=== PATIENT | male | born 1935 | race Caucasian/White ===

== ENCOUNTER 2019-03-23 23:30 | Emergency (ER) | payer SELFPAY ==
[~2019-03-23] VITALS: Ht 157.5 cm; Wt 70.9 kg
[2019-03-23 23:31] VITALS: Ht 157.5 cm; Wt 70.9 kg
[2019-03-24] MEDS ORDERED: NIFE30TA23 PO (03:14)
[2019-03-24 03:25] VITALS: BP 146/64; PULSE 78; RESP 18
--- NOTE | 2019-03-24 03:29 | ERD ---
ER Documentation Chief Complaint Chief Complaint HBP SBP IN 200s @HOME; HX OF HTN AND STROKE; NO CP, NO ALOC HPI 83-year-old male presenting with headache. He did not take his blood pressure medications today. He was noted to have high blood pressure at home so he was brought in for evaluation by his daughter. Apparently his blood pressure at home was systolic of over 230. He did take Cardene prior to arrival. He does have a history of hypertension and stroke. He denies any new onset focal weakness or numbness. No new vision disturbance. No nausea, vomiting. ROS All systems reviewed and are negative except as per history of present illness. Medications Home Meds Active Scripts Nifedipine* (Nifedipine ER*) 30 Mg Tablet.sa, 30 MG PO DAILY, #30 TAB.SA Prov:ELISEO WHITEHEAD MD 03/24/19 Allergies Allergies: Coded Allergies: No Known Allergy (Unverified , 03/24/19) PMhx/Soc Medical and Surgical Hx: pt denies Surgical Hx History of Surgery: No Anesthesia Reaction: No Hx Neurological Disorder: Yes (CVA) Hx Respiratory Disorders: No Hx Cardiac Disorders: Yes (HTN) Hx Psychiatric Problems: No Hx Miscellaneous Medical Probl: Yes (, Glaucoma, arthritis) Hx Alcohol Use: No Hx Substance Use: No Hx Tobacco Use: No Smoking Status: Never smoker FmHx Family History: No diabetes Physical Exam Vitals Vital Signs Date Temp Pulse Resp B/P (MAP) Pulse Ox O2 O2 Flow FiO2 Time Delivery Rate 03/23/19 97.4 78 18 215/86 98 23:31 (129) Physical Exam Const: No acute distress Head: Atraumatic Eyes: Normal Conjunctiva. Right corneal opacification, chronic. Left pupil midsize, reactive to light. EOMI ENT: Normal External Ears, Nose and Mouth. Neck: Full range of motion. No meningismus. Resp: Clear to auscultation bilaterally Cardio: Regular rate and rhythm, no murmurs Abd: Soft, non tender, non distended. Normal bowel sounds Skin: No petechiae or rashes Back: No midline or flank tenderness Ext: No cyanosis, or edema Neur: Awake and alert, oriented x3, cranial nerves intact, strength and sensations intact in left upper and left lower extremities. 3 out of 5 strength in the right upper and right lower extremity secondary to old stroke. Psych: Normal Mood and Affect Result Diagram: 03/24/19 0114 03/24/19 0114 Results 24 hrs Laboratory Tests Test 03/24/19 01:14 White Blood Count 12.1 10^3/ul Red Blood Count 4.00 10^6/ul Hemoglobin 11.8 g/dl Hematocrit 36.2 % Mean Corpuscular Volume 90.5 fl Mean Corpuscular Hemoglobin 29.5 pg Mean Corpuscular Hemoglobin Concent 32.6 g/dl Red Cell Distribution Width 14.1 % Platelet Count 354 10^3/UL Mean Platelet Volume 10.6 fl Immature Granulocytes % 0.600 % Neutrophils % 65.7 % Lymphocytes % 22.6 % Monocytes % 9.2 % Eosinophils % 1.4 % Basophils % 0.5 % Nucleated Red Blood Cells % 0.0 /100WBC Immature Granulocytes # 0.070 10^3/ul Neutrophils # 8.0 10^3/ul Lymphocytes # 2.7 10^3/ul Monocytes # 1.1 10^3/ul Eosinophils # 0.2 10^3/ul Basophils # 0.1 10^3/ul Nucleated Red Blood Cells # 0.0 10^3/ul Sodium Level 133 mmol/L Potassium Level 3.5 mmol/L Chloride Level 99 mmol/L Carbon Dioxide Level 24 mmol/L Anion Gap 10 Blood Urea Nitrogen 24 mg/dl Creatinine 0.62 mg/dl Est Glomerular Filtrat Rate mL/min mL/min Glucose Level 108 mg/dl Calcium Level 8.7 mg/dl Procedures/MDM EMERGENT LABS AND DIAGNOSTIC STUDIES: Lab Results above were reviewed and interpreted by me. CBC: Mild leukocytosis, unclear etiology. Mild anemia. BMP: Mild elevation in BUN, likely secondary to dehydration. No evidence of clinically significant electrolyte abnormality, acidosis, hypoglycemia or hyperglycemia Radiology Results as interpreted by Radiology below were reviewed by Nikhil Whitehead MD: CT head shows no acute abnormalities Initial Nursing notes reviewed. Previous Medical Records requested via the Electronic Health Record. EMERGENCY DEPARTMENT COURSE / MEDICAL DECISION MAKING: Patient is presenting with uncontrolled hypertension. He did take nifedipine prior to arrival with improvement of his blood pressure. I do not feel he needs treatment here. He has no new focal deficits but given his severe hypertension at home with a systolic blood pressure over 230, I did a CT of his head to rule out intracranial hemorrhage. CT head was negative for acute stroke or intracra nial hemorrhage. Labs did not show any significant abnormalities. Patient's blood pressure was elevated (>120/80) but appears stable without evidence of hypertensive emergency or urgency. The patient was counseled about the risks of hypertension and urged to pursue outpatient monitoring and therapy within a week with their primary care physician. Refill for Cardene given. Departure Diagnosis: Primary Impression: Hypertension Hypertension type: unspecified Qualified Codes: I10 - Essential (primary) hypertension Additional Impression: Headache Headache type: unspecified Headache chronicity pattern: acute headache Intractability: not intractable Qualified Codes: R51 - Headache Condition: Stable Patient Instructions: High Blood Pressure (Hypertension) [facility] Usted se link hecho un examen mdico de control que le indica que no est en karolyn condicin que requiera tratamiento urgente en el Departamento de Emergencia. Un estudio ms profundo y el tratamiento de nguyen condicin pueden esperar sin ningn riesgo hasta que usted sea atendida/o en el consultorio de nguyen mdico o karolyn c lnica. Es responsabilidad suya arreglar karolyn radha para el seguimiento del josue. MANEJO DE CONDICIONES NO URGENTES EN EL FUTURO 1) Si usted tiene un mdico de atencin primaria: Usted debera llamar a nguyen mdico de atencin primaria antes de venir al departamento de emergencia. Despus de las horas de consultorio, nguyen doctor o nguyen asociado/a est disponible por telfono. El mdico o enfermero de alexis en el servicio telefnico puede asesorarle por alcides medio para atender el problema, o josue contrario se puede programar karolyn radha. 2) Si usted no tiene un mdico de atencin primaria: Llame al mdico o clnica de referencia que aparece abajo reji las horas de consultorio para hacer karolyn radha para que le vean. CLINICAS: [facility] [phone] [facility] [phone] [place] [phone] [place] [id number] [phone] [place] [id number] [phone] [facility] [phone] [address] [facility]. [facility] () Linda se link hecho un examen mdico de control que le indica que no est en karolyn condicin que requiera tratamiento urgente en el Departamento de Emergencia. Un estudio ms profundo y el tratamiento de nguyen condicin pueden esperar sin ningn riesgo hasta que linda sea atendida/o en el consultorio de nguyen mdico o karolyn clnica. Es responsabilidad suya arreglar karolyn radha para el seguimiento del josue. MANEJO DE CONDICIONES NO URGENTES EN EL FUTURO 1) Si usted tiene un mdico de atencin primaria: Usted debera llamar a nguyen mdico de atencin primaria antes de venir al departamento de emergencia. Despus de las horas de consultorio, nguyen doctor o nguyen asociado/a est disponible por telfono. El mdico o enfermero de alexis en el servicio telefnico puede asesorarle por alcides medio para atender el problema, o josue contrario se puede programar karolyn radha. 2) Si usted no tiene un mdico de atencin primaria: Llame al mdico o condado institucions de referencia que aparece abajo reji las horas de consultorio para hacer karolyn radha para que le vean. SI USTED NO PUEDE PAGAR PARA KIRSTIE UN MEDICO puede ir a: [facility] [address] [place] [address] [facility] [address] [place] [address] [facility] [address] [place] [address] [facility] [address] [place] [address] Additional Instructions: Make an appointment for him to see a primary care doctor within 1 week for blood pressure check. Return to the ER if he is having any worsening symptoms. ELISEO WHITEHEAD MD Mar 24, 2019 03:28
== END 2019-03-24 04:36 | disposition home or self-care (01) ==
LOC: E/R 23:30
DX: I10 Essential (primary) hypertension (principal); R40.2142 Coma scale, eyes open, spontaneous, at arrival to emergency department; R40.2252 Coma scale, best verbal response, oriented, at arrival to emergency department; R40.2362 Coma scale, best motor response, obeys commands, at arrival to emergency department; Z86.73 Personal history of transient ischemic attack (TIA), and cerebral infarction without residual deficits
CPT/HCPCS: 36415; 70450; 80048; 85025